=== PATIENT | male | born 1965 | race African-American/Black ===

== ENCOUNTER 2021-08-09 15:14 | Inpatient (IN) | payer OTHER ==
[2021-08-09] MEDS ORDERED: ACETAMINOPHEN 1000 MG/100 ML BAG IVPB ONE (17:16)
[2021-08-09] MEDS ORDERED: LACTATED RINGERS SOLUTION 1000 ML INFUS.BAG IV ONE (17:16)
[2021-08-09] MEDS ORDERED: VANCOMYCIN 1,000 MG in DEXTROSE 5%-WATER - 250 ML IVPB ONE (17:50)
[2021-08-09] MEDS ORDERED: PIPERACILLIN/TAZOB 4.5 GM 4.5 GM in DEXTROSE 5%-WATER 100 ML IVPB ONE (17:50)
[2021-08-09] MEDS ORDERED: ACETAMINOPHEN INJECTION 100 ML IVPB ONE (17:55)
[2021-08-09] MEDS ORDERED: VANCOMYCIN 1 GRAM (PRE-DOCKED) 1,000 MG/250 ML BAG IVPB ONE (17:56)
[2021-08-09 18:03] LABS: BASO % 0.4 % (0-2.0); EOS % 1.8 % (0-4.5); HEMATOCRIT 32.7 % (35.4-49); HEMOGLOBIN 11.3 GM/dL (11.7-16.9); LYMPH % 7.9 % (8-40); MCH 30.7 pg (25.7-33.7); MCHC 34.6 g/dl (32.0-35.9); MEAN CELL VOLUME 88.8 fl (80-96); MEAN PLT VOLUME 7.6 fl (7.5-11.1); MONO % 9.8 % (3.8-10.2); NEUT % 80.1 % (42.8-82.8); PLATELET COUNT 229 10^3/uL (134-434); RBC 3.68 M/mm3 (4.00-5.60); RDW 13.8 % (11.9-15.9)
[2021-08-09 18:23] LABS: CHLORIDE 94 mmol/L (98-107); SODIUM 134 mmol/L (136-145)
[2021-08-09 18:24] LABS: INR 1.22 (0.83-1.09); PROTHROMBIN TIME (PATIENT) 14.3 SEC (9.7-13.0)
[2021-08-09 18:26] LABS: ALBUMIN 2.7 g/dl (3.4-5.0); ANION GAP 11 MMOL/L (8-16); BLOOD UREA NITROGEN 25.2 mg/dL (7-18); CALCIUM 8.6 mg/dL (8.5-10.1); CO2 29 mmol/L (21-32); GLUCOSE,RANDOM 170 mg/dL (74-106)
[2021-08-09 18:27] LABS: ACTIVATED PTT 29.3 SECONDS (25.2-36.5)
[2021-08-09 18:29] LABS: CREATININE 2.3 mg/dL (0.55-1.3); SGOT/AST 39 U/L (15-37); SGPT/ALT 23 U/L (13-61)
[2021-08-09 18:31] LABS: BILIRUBIN,TOTAL 1.3 mg/dL (0.2-1); TOT PROT 7.7 g/dl (6.4-8.2)
[2021-08-09 18:33] LABS: ALK PHOS 627 U/L (45-117)
[2021-08-09 23:34] LABS: MAGNESIUM 1.5 mg/dL (1.8-2.4)
[2021-08-10] MEDS ORDERED: POTASSIUM CHLORIDE TABS 20 MEQ TABLET.ER (FP) PO ONE ×3 (00:49→12:50)
[2021-08-10] MEDS ORDERED: guaiFENesin 200 MG/10 ML 10 ML UNIT-DOSE CUPS PO ONE (00:52)
[2021-08-10] MEDS ORDERED: ACETAMINOPHEN 325 MG TABLET (FP) PO ONE (00:52)
[2021-08-10] MEDS ORDERED: ACETAMINOPHEN 325 MG TABLET (FP) ONE (01:20)
[2021-08-10] MEDS ORDERED: guaiFENesin/D-METHORPHAN HB 10 ML UNIT-DOSE CUPS ONE (01:20)
[2021-08-10] MEDS ORDERED: MAGNESIUM 1GM/D5W - 1 GM/100 ML IVPB IVPB ONE (01:21)
[2021-08-10] MEDS ORDERED: ACETAMINOPHEN 1000 MG/100 ML BAG IVPB PRN (01:41)
[2021-08-10 01:46] LABS: EPI CELLS 5 /uL (0-25.1); HYALINE CASTS 1 /uL (0-3.1); PH,URINE 5.5 (5.0-8.0); URINE APPEARANCE CLEAR; URINE BACTERIA 3 /uL (0-1359); URINE BILIRUBIN NEGATIVE (NEGATIVE); URINE COLOR DK YELLOW; URINE GLUCOSE (UA) NEGATIVE (NEGATIVE); URINE KETONE NEGATIVE (NEGATIVE); URINE LEUK ESTERASE TRACE (NEGATIVE); URINE NITRITE NEGATIVE (NEGATIVE); URINE PROTEIN 3+ (NEGATIVE); URINE RBC 19 /uL (0-23.9); URINE WBC 23 /uL (0-25.8)
[2021-08-10 02:26] LABS: RETICULOCYTES 0.95 % (0.5-1.5)
[2021-08-10] MEDS ORDERED: ALBUTEROL SO4 HFA INHALER IH PRN (02:26)
[2021-08-10] MEDS: SODIUM CHLORIDE 1,000 ML IV SCH ×2 (03:16→23:08)
[2021-08-10] MEDS: PIPERACILLIN/TAZOB 3.375 GM 3.375 GM in DEXTROSE 5%-WATER - 50 ML IVPB SCH ×3 (03:55→17:30)
[2021-08-10] MEDS ORDERED: PIPERACILLIN/TAZOB 3.375 GM 3.375 GM/50 ML BAG IVPB ONE (03:57)
[2021-08-10] MEDS: LINEZOLID 600 MG PREMIX BAG 600 MG/300 ML BAG IVPB SCH ×2 (06:00→16:29)
[2021-08-10] MEDS: HEPARIN NA (PORCINE) 5,000 UNITS/ML 1ML VIAL SQ SCH ×3 (06:02→21:03)
[2021-08-10] MEDS: INSULIN SLIDING SCALE (NOVOLOG) 1 VIAL SQ SCH ×4 (06:07→21:03)
[2021-08-10 06:38] VITALS: BMI 28.0
[2021-08-10 08:51] LABS: EPI CELLS 2 /uL (0-25.1); HYALINE CASTS 0 /uL (0-3.1); PH,URINE 6.5 (5.0-8.0); URINE APPEARANCE CLEAR; URINE BACTERIA 1 /uL (0-1359); URINE BILIRUBIN NEGATIVE (NEGATIVE); URINE COLOR YELLOW; URINE GLUCOSE (UA) NEGATIVE (NEGATIVE); URINE KETONE NEGATIVE (NEGATIVE); URINE LEUK ESTERASE TRACE (NEGATIVE); URINE NITRITE NEGATIVE (NEGATIVE); URINE PROTEIN 2+ (NEGATIVE); URINE RBC 7 /uL (0-23.9); URINE WBC 9 /uL (0-25.8)
[2021-08-10] MEDS ORDERED: PT OWN MED DRAWER 7, Y5N ONE ×3 (09:10→20:07)
[2021-08-10] MEDS ORDERED: DEXTROSE 5%-WATER - 50 ML IVPB ONE ×2 (09:10→16:55)
[2021-08-10] MEDS ORDERED: PIPERACILLIN/TAZOBACTAM 3.375 GM VIAL IVPB ONE ×2 (09:10→16:54)
[2021-08-10] MEDS: BUDESONIDE/FORMETEROL FUMARATE 80/4.5 mcg INHALER IH SCH ×2 (09:28→21:19)
[2021-08-10] MEDS: guaiFENesin/D-M SUGAR-FREE/ACLHOL-FREE 118 ML BOTTLE PO PRN ×2 (09:29→20:22)
[2021-08-10] MEDS ORDERED: FLU VACC QS2021-22(6MOS UP)/PF 60 MCG/0.5 ML SYRINGE IM ONE (10:00)
[2021-08-10 11:55] LABS: BASO % 0.5 % (0-2.0); EOS % 3.8 % (0-4.5); HEMATOCRIT 28.5 % (35.4-49); LYMPH % 7.8 % (8-40); MCH 31.2 pg (25.7-33.7); MCHC 35.1 g/dl (32.0-35.9); MEAN CELL VOLUME 89.1 fl (80-96); MEAN PLT VOLUME 8.2 fl (7.5-11.1); MONO % 12.3 % (3.8-10.2); NEUT % 75.6 % (42.8-82.8); PLATELET COUNT 162 10^3/uL (134-434); RDW 13.9 % (11.9-15.9); WHITE BLOOD COUNT 4.1 K/mm3 (4.0-10.0)
[2021-08-10] MEDS ORDERED: INSULIN (NOVOLOG) ASPART 100 UNITS/ML 10ML VIAL ONE (12:09)
[2021-08-10 12:17] LABS: CALCIUM 8.2 mg/dL (8.5-10.1)
[2021-08-10 12:18] LABS: ALBUMIN 2.5 g/dl (3.4-5.0); BLOOD UREA NITROGEN 25.3 mg/dL (7-18); MAGNESIUM 1.8 mg/dL (1.8-2.4)
[2021-08-10 12:21] LABS: CHOLESTEROL 129 mg/dL (50-200)
[2021-08-10 12:22] LABS: BILIRUBIN,TOTAL 1.5 mg/dL (0.2-1); TOT PROT 6.6 g/dl (6.4-8.2); TRIGLYCERIDES 110 mg/dL (0-150)
[2021-08-10 12:23] LABS: LDL CHOLESTEROL (ONLY SJRH) 75 mg/dL (5-100)
[2021-08-10 12:24] LABS: HDL CHOLESTEROL 33 mg/dL (40-60)
[2021-08-10] MEDS ORDERED: traMADol HCL 50 MG TABLET PO PRN (12:50)
[2021-08-10] MEDS ORDERED: guaiFENesin 200 MG/10 ML 10 ML UNIT-DOSE CUPS PO PRN (12:50)
[2021-08-10] MEDS ORDERED: TACROLIMUS ANHYDROUS 1 MG CAPSULE PO SCH (13:30)
[2021-08-10] MEDS ORDERED: TACROLIMUS 0.5 MG CAPSULE PO SCH (13:30)
[2021-08-10] MEDS: predniSONE 5 MG TABLET (UD) PO SCH (14:43)
[2021-08-10] MEDS: oxyCODONE HCL 5 MG TABLET PO PRN (16:56)
[2021-08-10] MEDS: MYCOPHENOLATE MOFETIL 250 MG CAPSULE PO SCH (21:02)
[2021-08-10] MEDS: TACROLIMUS ANHYDROUS 1 MG, TACROLIMUS ANHYDROUS 0.5 MG PO SCH (21:02)
[2021-08-11] MEDS ORDERED: DEXTROSE 5%-WATER - 50 ML IVPB ONE ×3 (01:13→18:33)
[2021-08-11] MEDS ORDERED: PIPERACILLIN/TAZOBACTAM 3.375 GM VIAL IVPB ONE ×3 (01:13→18:33)
[2021-08-11] MEDS: PIPERACILLIN/TAZOB 3.375 GM 3.375 GM in DEXTROSE 5%-WATER - 50 ML IVPB SCH ×3 (01:32→19:10)
[2021-08-11] MEDS ORDERED: MELATONIN 5 MG TABLETS PO ONE ×2 (01:57→21:37)
[2021-08-11] MEDS: LINEZOLID 600 MG PREMIX BAG 600 MG/300 ML BAG IVPB SCH ×2 (03:01→17:38)
[2021-08-11] MEDS: SODIUM CHLORIDE 1,000 ML IV SCH (03:01)
[2021-08-11] MEDS: oxyCODONE HCL 5 MG TABLET PO PRN ×3 (03:18→17:39)
[2021-08-11] MEDS: HEPARIN NA (PORCINE) 5,000 UNITS/ML 1ML VIAL SQ SCH ×3 (06:44→21:27)
[2021-08-11] MEDS: INSULIN SLIDING SCALE (NOVOLOG) 1 VIAL SQ SCH ×4 (06:47→21:49)
[2021-08-11] MEDS ORDERED: PT OWN MED DRAWER 7, Y5N ONE ×3 (09:47→17:53)
[2021-08-11] MEDS: MYCOPHENOLATE MOFETIL 250 MG CAPSULE PO SCH (10:02)
[2021-08-11] MEDS: TACROLIMUS ANHYDROUS 1 MG, TACROLIMUS ANHYDROUS 0.5 MG PO SCH ×2 (10:02→21:27)
[2021-08-11] MEDS: FAMOTIDINE 20 MG TABLET PO SCH (10:02)
[2021-08-11] MEDS: predniSONE 5 MG TABLET (UD) PO SCH (10:02)
[2021-08-11 10:08] LABS: BASO % 0.6 % (0-2.0); EOS % 2.6 % (0-4.5); HEMATOCRIT 26.7 % (35.4-49); HEMOGLOBIN 9.5 GM/dL (11.7-16.9); MCH 31.5 pg (25.7-33.7); MCHC 35.4 g/dl (32.0-35.9); MONO % 14.4 % (3.8-10.2); NEUT % 72.4 % (42.8-82.8); PLATELET COUNT 153 10^3/uL (134-434); RDW 13.8 % (11.9-15.9); WHITE BLOOD COUNT 2.7 K/mm3 (4.0-10.0)
[2021-08-11] MEDS: BUDESONIDE/FORMETEROL FUMARATE 80/4.5 mcg INHALER IH SCH ×2 (10:15→21:50)
[2021-08-11 10:20] LABS: ALBUMIN 2.1 g/dl (3.4-5.0); BLOOD UREA NITROGEN 21.6 mg/dL (7-18)
[2021-08-11 10:23] LABS: CREATININE 1.9 mg/dL (0.55-1.3)
[2021-08-11 10:25] LABS: BILIRUBIN,TOTAL 1.3 mg/dL (0.2-1); TOT PROT 6.4 g/dl (6.4-8.2)
[2021-08-11] MEDS ORDERED: POTASSIUM CHLORIDE TABS 20 MEQ TABLET.ER (FP) PO ONE (11:47)
[2021-08-11] MEDS ORDERED: guaiFENesin/D-M SUGAR-FREE/ACLHOL-FREE 5 ML UNIT DOSE PO PRN (12:26)
[2021-08-11] MEDS ORDERED: SOTROVIMAB 500 MG in SODIUM CHLORIDE 100 ML IVPB ONE (14:00)
[2021-08-11] MEDS ORDERED: REMDESIVIR 200 MG in SODIUM CHLORIDE 250 ML IVPB ONE (15:00)
[2021-08-11] MEDS ORDERED: INSULIN (NOVOLOG) ASPART 100 UNITS/ML 10ML VIAL ONE (16:49)
[2021-08-11 19:52] LABS: BILIRUBIN,DIRECT 0.7 mg/dL (0.0-0.2)
[2021-08-12] MEDS ORDERED: DEXTROSE 5%-WATER - 50 ML IVPB ONE ×3 (02:12→17:53)
[2021-08-12] MEDS ORDERED: PIPERACILLIN/TAZOBACTAM 3.375 GM VIAL IVPB ONE ×3 (02:12→17:52)
[2021-08-12] MEDS: PIPERACILLIN/TAZOB 3.375 GM 3.375 GM in DEXTROSE 5%-WATER - 50 ML IVPB SCH ×3 (02:25→19:05)
[2021-08-12] MEDS: oxyCODONE HCL 5 MG TABLET PO PRN ×2 (02:26→17:56)
[2021-08-12] MEDS: LINEZOLID 600 MG PREMIX BAG 600 MG/300 ML BAG IVPB SCH ×2 (05:19→16:26)
[2021-08-12] MEDS: HEPARIN NA (PORCINE) 5,000 UNITS/ML 1ML VIAL SQ SCH ×3 (05:53→21:46)
[2021-08-12] MEDS: INSULIN SLIDING SCALE (NOVOLOG) 1 VIAL SQ SCH ×4 (05:59→21:56)
[2021-08-12] MEDS: FAMOTIDINE 20 MG TABLET PO SCH (10:14)
[2021-08-12] MEDS: BUDESONIDE/FORMETEROL FUMARATE 80/4.5 mcg INHALER IH SCH ×2 (10:15→21:55)
[2021-08-12] MEDS: TACROLIMUS ANHYDROUS 1 MG, TACROLIMUS ANHYDROUS 0.5 MG PO SCH ×2 (12:06→23:58)
[2021-08-12] MEDS: predniSONE 5 MG TABLET (UD) PO SCH (12:06)
[2021-08-12] MEDS: SODIUM CHLORIDE 1,000 ML IV SCH (12:10)
[2021-08-12 13:13] LABS: BASO % 0.5 % (0-2.0); EOS % 3.3 % (0-4.5); HEMOGLOBIN 9.6 GM/dL (11.7-16.9); LYMPH % 12.7 % (8-40); MCH 31.7 pg (25.7-33.7); MCHC 35.4 g/dl (32.0-35.9); MEAN CELL VOLUME 89.6 fl (80-96); MEAN PLT VOLUME 8.4 fl (7.5-11.1); MONO % 14.8 % (3.8-10.2); NEUT % 68.7 % (42.8-82.8); PLATELET COUNT 176 10^3/uL (134-434); RBC 3.02 M/mm3 (4.00-5.60); RDW 14.1 % (11.9-15.9); WHITE BLOOD COUNT 2.7 K/mm3 (4.0-10.0)
[2021-08-12 13:36] LABS: BLOOD UREA NITROGEN 19.2 mg/dL (7-18); MAGNESIUM 1.3 mg/dL (1.8-2.4)
[2021-08-12 13:39] LABS: CREATININE 1.8 mg/dL (0.55-1.3); PHOSPHOROUS 2.6 mg/dL (2.5-4.9)
[2021-08-12] MEDS ORDERED: MAGNESIUM SULF 50% (8.12 MEQ/2 ML-1 GM VIAL) IVPB ONE (14:13)
[2021-08-12] MEDS ORDERED: PT OWN MED DRAWER 7, Y5N ONE ×2 (21:12→21:40)
[2021-08-12] MEDS: REMDESIVIR 100 MG in SODIUM CHLORIDE 250 ML IVPB SCH (21:46)
[2021-08-12] MEDS: MELATONIN 5 MG TABLETS PO PRN (23:58)
[2021-08-13] MEDS: SODIUM CHLORIDE 1,000 ML IV SCH ×2 (00:01→09:28)
[2021-08-13] MEDS ORDERED: DEXTROSE 5%-WATER - 50 ML IVPB ONE ×3 (01:20→17:14)
[2021-08-13] MEDS ORDERED: PIPERACILLIN/TAZOBACTAM 3.375 GM VIAL IVPB ONE ×3 (01:20→17:14)
[2021-08-13] MEDS: PIPERACILLIN/TAZOB 3.375 GM 3.375 GM in DEXTROSE 5%-WATER - 50 ML IVPB SCH ×3 (01:32→19:09)
[2021-08-13] MEDS ORDERED: PT OWN MED DRAWER 7, Y5N ONE ×4 (03:47→22:10)
[2021-08-13] MEDS: LINEZOLID 600 MG PREMIX BAG 600 MG/300 ML BAG IVPB SCH ×2 (03:53→17:27)
[2021-08-13] MEDS: oxyCODONE HCL 5 MG TABLET PO PRN (06:00)
[2021-08-13] MEDS: HEPARIN NA (PORCINE) 5,000 UNITS/ML 1ML VIAL SQ SCH ×3 (06:12→22:23)
[2021-08-13] MEDS: INSULIN SLIDING SCALE (NOVOLOG) 1 VIAL SQ SCH ×4 (06:13→22:24)
[2021-08-13] MEDS ORDERED: ONDANSETRON 4 MG/2 ML VIAL IVPUSH PRN (09:02)
[2021-08-13] MEDS: ACETAMINOPHEN 325 MG TABLET (FP) PO PRN ×3 (09:29→22:22)
[2021-08-13] MEDS: TACROLIMUS ANHYDROUS 1 MG, TACROLIMUS ANHYDROUS 0.5 MG PO SCH ×2 (10:27→22:25)
[2021-08-13] MEDS: MAGNESIUM OXIDE 400 MG TABLET (FP) PO SCH (10:29)
[2021-08-13] MEDS: FAMOTIDINE 20 MG TABLET PO SCH (10:29)
[2021-08-13] MEDS: predniSONE 5 MG TABLET (UD) PO SCH (10:29)
[2021-08-13] MEDS: BUDESONIDE/FORMETEROL FUMARATE 80/4.5 mcg INHALER IH SCH ×2 (10:30→22:25)
[2021-08-13 13:04] LABS: HEMATOCRIT 26.7 % (35.4-49); HEMOGLOBIN 9.6 GM/dL (11.7-16.9); MCHC 35.9 g/dl (32.0-35.9); MEAN CELL VOLUME 89.1 fl (80-96); MEAN PLT VOLUME 7.6 fl (7.5-11.1); PLATELET COUNT 176 10^3/uL (134-434); RDW 13.7 % (11.9-15.9); WHITE BLOOD COUNT 3.4 K/mm3 (4.0-10.0)
[2021-08-13 13:37] LABS: BLOOD UREA NITROGEN 16.4 mg/dL (7-18)
[2021-08-13 13:39] LABS: MAGNESIUM 1.5 mg/dL (1.8-2.4)
[2021-08-13 13:41] LABS: CREATININE 1.5 mg/dL (0.55-1.3)
[2021-08-13] MEDS: REMDESIVIR 100 MG in SODIUM CHLORIDE 250 ML IVPB SCH (14:22)
[2021-08-13] MEDS ORDERED: oxyCODONE HCL 5 MG TABLET PO ONE (19:00)
[2021-08-13] MEDS: MELATONIN 5 MG TABLETS PO PRN (22:22)
[2021-08-13] MEDS ORDERED: amLODIPine BESYLATE 2.5 MG TABLET (FP) PO ONE (23:06)
[2021-08-14] MEDS ORDERED: DEXTROSE 5%-WATER - 50 ML IVPB ONE ×3 (01:26→18:14)
[2021-08-14] MEDS ORDERED: PIPERACILLIN/TAZOBACTAM 3.375 GM VIAL IVPB ONE ×4 (01:26→18:14)
[2021-08-14] MEDS: PIPERACILLIN/TAZOB 3.375 GM 3.375 GM in DEXTROSE 5%-WATER - 50 ML IVPB SCH ×3 (01:31→18:22)
[2021-08-14] MEDS: SODIUM CHLORIDE 1,000 ML IV SCH (01:41)
[2021-08-14] MEDS ORDERED: PT OWN MED DRAWER 7, Y5N ONE ×4 (05:05→21:00)
[2021-08-14] MEDS: LINEZOLID 600 MG PREMIX BAG 600 MG/300 ML BAG IVPB SCH ×2 (05:07→19:56)
[2021-08-14] MEDS: HEPARIN NA (PORCINE) 5,000 UNITS/ML 1ML VIAL SQ SCH ×3 (05:08→21:32)
[2021-08-14] MEDS ORDERED: amLODIPine BESYLATE 2.5 MG TABLET (FP) PO ONE (05:30)
[2021-08-14] MEDS: INSULIN SLIDING SCALE (NOVOLOG) 1 VIAL SQ SCH ×4 (06:03→21:33)
[2021-08-14] MEDS: MAGNESIUM OXIDE 400 MG TABLET (FP) PO SCH (10:30)
[2021-08-14] MEDS: FAMOTIDINE 20 MG TABLET PO SCH (10:30)
[2021-08-14] MEDS: TACROLIMUS ANHYDROUS 1 MG, TACROLIMUS ANHYDROUS 0.5 MG PO SCH ×2 (10:35→21:32)
[2021-08-14] MEDS: predniSONE 5 MG TABLET (UD) PO SCH (10:36)
[2021-08-14] MEDS: BUDESONIDE/FORMETEROL FUMARATE 80/4.5 mcg INHALER IH SCH ×3 (10:36→21:39)
[2021-08-14 10:52] LABS: HEMATOCRIT 29.1 % (35.4-49); HEMOGLOBIN 10.4 GM/dL (11.7-16.9); MCH 31.9 pg (25.7-33.7); MCHC 35.6 g/dl (32.0-35.9); MEAN CELL VOLUME 89.8 fl (80-96); MEAN PLT VOLUME 7.6 fl (7.5-11.1); PLATELET COUNT 194 10^3/uL (134-434); RBC 3.24 M/mm3 (4.00-5.60); RDW 13.7 % (11.9-15.9); WHITE BLOOD COUNT 2.7 K/mm3 (4.0-10.0)
[2021-08-14 11:18] LABS: ALBUMIN 2.3 g/dl (3.4-5.0); BLOOD UREA NITROGEN 17.8 mg/dL (7-18); CALCIUM 8.3 mg/dL (8.5-10.1)
[2021-08-14 11:21] LABS: BILIRUBIN,TOTAL 0.7 mg/dL (0.2-1); TOT PROT 6.3 g/dl (6.4-8.2)
[2021-08-14 11:22] LABS: CREATININE 1.7 mg/dL (0.55-1.3)
[2021-08-14] MEDS ORDERED: SODIUM CHLORIDE 0.45% 1,000 ML IV SCH (13:15)
[2021-08-14] MEDS ORDERED: CEFTRIAXONE 2 GM in DEXTROSE 5%-WATER 100 ML IVPB SCH (14:15)
[2021-08-14] MEDS ORDERED: PANTOPRAZOLE 20 MG TABLET PO PRN (14:33)
[2021-08-14] MEDS ORDERED: DEXTROSE 5%-WATER 100 ML IVPB ONE (15:25)
[2021-08-14] MEDS: ACETAMINOPHEN 325 MG TABLET (FP) PO PRN (20:24)
[2021-08-14] MEDS: GABAPENTIN 400 MG CAPSULE PO SCH (21:32)
[2021-08-15] MEDS ORDERED: DEXTROSE 5%-WATER - 50 ML IVPB ONE ×3 (00:46→17:21)
[2021-08-15] MEDS ORDERED: PIPERACILLIN/TAZOBACTAM 3.375 GM VIAL IVPB ONE ×3 (00:46→17:21)
[2021-08-15] MEDS: PIPERACILLIN/TAZOB 3.375 GM 3.375 GM in DEXTROSE 5%-WATER - 50 ML IVPB SCH ×3 (01:09→17:22)
[2021-08-15] MEDS: SODIUM CHLORIDE 1,000 ML IV SCH (01:09)
[2021-08-15] MEDS ORDERED: PT OWN MED DRAWER 7, Y5N ONE ×3 (06:23→10:18)
[2021-08-15] MEDS: HEPARIN NA (PORCINE) 5,000 UNITS/ML 1ML VIAL SQ SCH ×3 (06:45→21:26)
[2021-08-15] MEDS: INSULIN SLIDING SCALE (NOVOLOG) 1 VIAL SQ SCH ×3 (06:47→17:44)
[2021-08-15] MEDS: LINEZOLID 600 MG PREMIX BAG 600 MG/300 ML BAG IVPB SCH ×2 (06:47→17:20)
[2021-08-15 09:27] LABS: ALBUMIN 2.4 g/dl (3.4-5.0); CALCIUM 8.4 mg/dL (8.5-10.1)
[2021-08-15 09:30] LABS: CREATININE 1.8 mg/dL (0.55-1.3)
[2021-08-15 09:32] LABS: TOT PROT 6.5 g/dl (6.4-8.2)
[2021-08-15] MEDS: MAGNESIUM OXIDE 400 MG TABLET (FP) PO SCH (09:55)
[2021-08-15] MEDS: TACROLIMUS ANHYDROUS 1 MG, TACROLIMUS ANHYDROUS 0.5 MG PO SCH ×2 (09:55→21:26)
[2021-08-15] MEDS: GABAPENTIN 400 MG CAPSULE PO SCH ×2 (09:55→21:26)
[2021-08-15] MEDS: FAMOTIDINE 20 MG TABLET PO SCH (09:55)
[2021-08-15] MEDS: TAMSULOSIN HCL 0.4 MG CAP PO SCH (09:55)
[2021-08-15] MEDS: predniSONE 5 MG TABLET (UD) PO SCH (09:55)
[2021-08-15] MEDS: amLODIPine BESYLATE 10 MG TABLET (FP) PO SCH (09:56)
[2021-08-15] MEDS: BUDESONIDE/FORMETEROL FUMARATE 80/4.5 mcg INHALER IH SCH ×2 (10:16→21:26)
[2021-08-15] MEDS: ACETAMINOPHEN 325 MG TABLET (FP) PO PRN ×2 (10:22→21:34)
[2021-08-15] MEDS: ATORVASTATIN CA 40 MG TABLET (FP) PO SCH (21:26)
[2021-08-16] MEDS: INSULIN SLIDING SCALE (NOVOLOG) 1 VIAL SQ SCH ×5 (00:23→21:23)
[2021-08-16] MEDS: SODIUM CHLORIDE 1,000 ML IV SCH ×3 (06:57→21:02)
[2021-08-16] MEDS: HEPARIN NA (PORCINE) 5,000 UNITS/ML 1ML VIAL SQ SCH ×3 (06:58→21:22)
[2021-08-16] MEDS ORDERED: PT OWN MED DRAWER 7, Y5N ONE ×3 (08:33→21:18)
[2021-08-16] MEDS: amLODIPine BESYLATE 10 MG TABLET (FP) PO SCH (09:11)
[2021-08-16] MEDS: MAGNESIUM OXIDE 400 MG TABLET (FP) PO SCH (09:11)
[2021-08-16] MEDS: GABAPENTIN 400 MG CAPSULE PO SCH ×2 (09:11→21:23)
[2021-08-16] MEDS: FAMOTIDINE 20 MG TABLET PO SCH (09:11)
[2021-08-16] MEDS: TAMSULOSIN HCL 0.4 MG CAP PO SCH (09:11)
[2021-08-16] MEDS: predniSONE 5 MG TABLET (UD) PO SCH (09:12)
[2021-08-16] MEDS: TACROLIMUS ANHYDROUS 1 MG, TACROLIMUS ANHYDROUS 0.5 MG PO SCH ×2 (09:13→21:22)
[2021-08-16] MEDS: BUDESONIDE/FORMETEROL FUMARATE 80/4.5 mcg INHALER IH SCH ×2 (09:13→21:24)
[2021-08-16 09:44] LABS: HEMATOCRIT 24.5 % (35.4-49); HEMOGLOBIN 8.6 GM/dL (11.7-16.9); MCH 31.7 pg (25.7-33.7); MCHC 35.1 g/dl (32.0-35.9); MEAN CELL VOLUME 90.1 fl (80-96); MEAN PLT VOLUME 7.4 fl (7.5-11.1); PLATELET COUNT 140 10^3/uL (134-434); RBC 2.71 M/mm3 (4.00-5.60); RDW 14.3 % (11.9-15.9)
[2021-08-16 10:19] LABS: BLOOD UREA NITROGEN 20.2 mg/dL (7-18)
[2021-08-16 10:20] LABS: CALCIUM 7.2 mg/dL (8.5-10.1)
[2021-08-16 10:21] LABS: ALBUMIN 2.3 g/dl (3.4-5.0); BILIRUBIN,TOTAL 0.4 mg/dL (0.2-1)
[2021-08-16 10:23] LABS: CREATININE 1.5 mg/dL (0.55-1.3)
[2021-08-16 10:59] LABS: HIV INTERPRETATION NEGATIVE (NEGATIVE); SYPHILIS W/ RPR CONF NON-REACTIVE (NONREACTIVE); WHITE BLOOD COUNT 1.8 K/mm3 (4.0-10.0)
[2021-08-16] MEDS: ATORVASTATIN CA 40 MG TABLET (FP) PO SCH (21:23)
[2021-08-17] MEDS: HEPARIN NA (PORCINE) 5,000 UNITS/ML 1ML VIAL SQ SCH ×3 (06:03→21:18)
[2021-08-17] MEDS: INSULIN SLIDING SCALE (NOVOLOG) 1 VIAL SQ SCH ×4 (06:04→21:19)
[2021-08-17] MEDS ORDERED: PT OWN MED DRAWER 7, Y5N ONE ×2 (09:09→21:05)
[2021-08-17] MEDS: SODIUM CHLORIDE 1,000 ML IV SCH (10:55)
[2021-08-17] MEDS: predniSONE 5 MG TABLET (UD) PO SCH (10:58)
[2021-08-17] MEDS: amLODIPine BESYLATE 10 MG TABLET (FP) PO SCH (10:58)
[2021-08-17] MEDS: TAMSULOSIN HCL 0.4 MG CAP PO SCH (10:58)
[2021-08-17] MEDS: MAGNESIUM OXIDE 400 MG TABLET (FP) PO SCH (10:58)
[2021-08-17] MEDS: FAMOTIDINE 20 MG TABLET PO SCH (10:59)
[2021-08-17] MEDS: GABAPENTIN 400 MG CAPSULE PO SCH ×2 (10:59→21:19)
[2021-08-17] MEDS: ACETAMINOPHEN 325 MG TABLET (FP) PO PRN (11:00)
[2021-08-17] MEDS: BUDESONIDE/FORMETEROL FUMARATE 80/4.5 mcg INHALER IH SCH ×2 (11:15→21:24)
[2021-08-17] MEDS: TACROLIMUS ANHYDROUS 1 MG, TACROLIMUS ANHYDROUS 0.5 MG PO SCH ×2 (11:16→21:19)
[2021-08-17 12:11] LABS: BASO % 0.4 % (0-2.0); EOS % 1.7 % (0-4.5); HEMATOCRIT 27.2 % (35.4-49); HEMOGLOBIN 9.3 GM/dL (11.7-16.9); LYMPH % 27.7 % (8-40); MCH 31.2 pg (25.7-33.7); MCHC 34.3 g/dl (32.0-35.9); MEAN PLT VOLUME 7.7 fl (7.5-11.1); MONO % 11.4 % (3.8-10.2); NEUT % 58.8 % (42.8-82.8); PLATELET COUNT 147 10^3/uL (134-434); RBC 2.99 M/mm3 (4.00-5.60); WHITE BLOOD COUNT 2.1 K/mm3 (4.0-10.0)
[2021-08-17 12:36] LABS: CALCIUM 7.9 mg/dL (8.5-10.1)
[2021-08-17 12:37] LABS: BLOOD UREA NITROGEN 25.6 mg/dL (7-18)
[2021-08-17 12:40] LABS: CREATININE 1.6 mg/dL (0.55-1.3)
[2021-08-17] MEDS: ATORVASTATIN CA 40 MG TABLET (FP) PO SCH (21:19)
[2021-08-17] MEDS: MELATONIN 5 MG TABLETS PO PRN (21:19)
[2021-08-18] MEDS: SODIUM CHLORIDE 1,000 ML IV SCH ×2 (01:04→23:08)
[2021-08-18] MEDS: HEPARIN NA (PORCINE) 5,000 UNITS/ML 1ML VIAL SQ SCH ×3 (06:36→21:59)
[2021-08-18] MEDS: INSULIN SLIDING SCALE (NOVOLOG) 1 VIAL SQ SCH ×4 (06:37→21:59)
[2021-08-18 09:36] LABS: BASO % 0.3 % (0-2.0); EOS % 1.7 % (0-4.5); HEMATOCRIT 26.6 % (35.4-49); HEMOGLOBIN 9.3 GM/dL (11.7-16.9); LYMPH % 25.2 % (8-40); MCH 31.4 pg (25.7-33.7); MEAN CELL VOLUME 89.7 fl (80-96); MEAN PLT VOLUME 7.5 fl (7.5-11.1); MONO % 9.9 % (3.8-10.2); NEUT % 62.9 % (42.8-82.8); PLATELET COUNT 133 10^3/uL (134-434); RBC 2.97 M/mm3 (4.00-5.60); RDW 14.2 % (11.9-15.9); WHITE BLOOD COUNT 2.2 K/mm3 (4.0-10.0)
[2021-08-18 09:59] LABS: BLOOD UREA NITROGEN 26.4 mg/dL (7-18); CALCIUM 8.5 mg/dL (8.5-10.1)
[2021-08-18 10:00] LABS: ALBUMIN 2.5 g/dl (3.4-5.0); MAGNESIUM 1.2 mg/dL (1.8-2.4)
[2021-08-18 10:02] LABS: PHOSPHOROUS 2.4 mg/dL (2.5-4.9)
[2021-08-18 10:03] LABS: CREATININE 1.6 mg/dL (0.55-1.3)
[2021-08-18 10:04] LABS: BILIRUBIN,TOTAL 0.6 mg/dL (0.2-1); TOT PROT 6.5 g/dl (6.4-8.2)
[2021-08-18] MEDS ORDERED: PT OWN MED DRAWER 7, Y5N ONE ×3 (10:33→22:38)
[2021-08-18] MEDS: GABAPENTIN 400 MG CAPSULE PO SCH ×2 (10:35→22:00)
[2021-08-18] MEDS: MAGNESIUM OXIDE 400 MG TABLET (FP) PO SCH (10:36)
[2021-08-18] MEDS: amLODIPine BESYLATE 10 MG TABLET (FP) PO SCH (10:36)
[2021-08-18] MEDS: FAMOTIDINE 20 MG TABLET PO SCH (10:36)
[2021-08-18] MEDS: BUDESONIDE/FORMETEROL FUMARATE 80/4.5 mcg INHALER IH SCH ×2 (10:36→22:01)
[2021-08-18] MEDS: TAMSULOSIN HCL 0.4 MG CAP PO SCH (10:36)
[2021-08-18] MEDS: predniSONE 5 MG TABLET (UD) PO SCH (10:37)
[2021-08-18] MEDS: TACROLIMUS ANHYDROUS 1 MG, TACROLIMUS ANHYDROUS 0.5 MG PO SCH ×2 (10:38→22:01)
[2021-08-18] MEDS ORDERED: MAGNESIUM 2GM/50ML STERILE WATER IVPB IVPB ONE (12:23)
[2021-08-18] MEDS ORDERED: SODIUM PHOSPHATE - 15 MM in SODIUM CHLORIDE 250 ML IVPB ONE (13:00)
[2021-08-18 17:11] LABS: INR 1.2 (0.83-1.09); PROTHROMBIN TIME (PATIENT) 13.8 SEC (9.7-13.0)
[2021-08-18] MEDS: ATORVASTATIN CA 40 MG TABLET (FP) PO SCH (22:00)
[2021-08-19] MEDS: SODIUM CHLORIDE 1,000 ML IV SCH ×3 (05:44→20:50)
[2021-08-19] MEDS: INSULIN SLIDING SCALE (NOVOLOG) 1 VIAL SQ SCH ×3 (06:29→21:25)
[2021-08-19] MEDS ORDERED: BUPIVACAINE HCL/PF 0.5% (5MG/ML) 10 ML VIAL ONE (07:58)
[2021-08-19] MEDS ORDERED: LIDOCAINE HCL 1%, 10 MG/ML (20ML VIAL) ONE (07:58)
[2021-08-19] MEDS ORDERED: PT OWN MED DRAWER 7, Y5N ONE ×2 (09:03→21:18)
[2021-08-19] MEDS: amLODIPine BESYLATE 10 MG TABLET (FP) PO SCH (09:09)
[2021-08-19] MEDS: GABAPENTIN 400 MG CAPSULE PO SCH ×2 (09:09→21:25)
[2021-08-19] MEDS: FAMOTIDINE 20 MG TABLET PO SCH (09:09)
[2021-08-19] MEDS: MAGNESIUM OXIDE 400 MG TABLET (FP) PO SCH (09:09)
[2021-08-19] MEDS: BUDESONIDE/FORMETEROL FUMARATE 80/4.5 mcg INHALER IH SCH ×2 (09:09→21:26)
[2021-08-19] MEDS: TAMSULOSIN HCL 0.4 MG CAP PO SCH (09:09)
[2021-08-19] MEDS: TACROLIMUS ANHYDROUS 1 MG, TACROLIMUS ANHYDROUS 0.5 MG PO SCH ×2 (09:11→21:26)
[2021-08-19] MEDS: predniSONE 5 MG TABLET (UD) PO SCH (09:11)
[2021-08-19] MEDS ORDERED: MIDAZOLAM HCL 2 MG/2 ML SINGLE DOSE VIAL ONE ×2 (09:50)
[2021-08-19] MEDS ORDERED: PROPOFOL 20 ML ONE ×2 (09:50→11:02)
[2021-08-19 10:43] LABS: BASO % 0.4 % (0-2.0); EOS % 1.8 % (0-4.5); HEMATOCRIT 32.5 % (35.4-49); HEMOGLOBIN 11.5 GM/dL (11.7-16.9); LYMPH % 22.5 % (8-40); MCH 31.7 pg (25.7-33.7); MCHC 35.4 g/dl (32.0-35.9); MEAN CELL VOLUME 89.5 fl (80-96); MEAN PLT VOLUME 7.6 fl (7.5-11.1); MONO % 10.7 % (3.8-10.2); NEUT % 64.6 % (42.8-82.8); PLATELET COUNT 150 10^3/uL (134-434); RBC 3.63 M/mm3 (4.00-5.60); RDW 14.1 % (11.9-15.9); WHITE BLOOD COUNT 4.1 K/mm3 (4.0-10.0)
[2021-08-19] MEDS ORDERED: LIDOCAINE HCL 1%, 10 MG/ML (20ML VIAL) INF ONE ×3 (10:51)
[2021-08-19] MEDS ORDERED: VANCOMYCIN 1,000 MG VIAL (RESTRICTED TO ID ONLY) ONE (10:51)
[2021-08-19 11:04] LABS: BLOOD UREA NITROGEN 28.7 mg/dL (7-18)
[2021-08-19 11:07] LABS: BILIRUBIN,TOTAL 0.8 mg/dL (0.2-1); CREATININE 1.6 mg/dL (0.55-1.3)
[2021-08-19 11:09] LABS: TOT PROT 7.9 g/dl (6.4-8.2)
[2021-08-19 11:12] LABS: ALBUMIN 3.1 g/dl (3.4-5.0)
[2021-08-19] MEDS ORDERED: SEVOFLURANE 250 ML BTL ONE (11:15)
[2021-08-19] MEDS ORDERED: DESFLURANE GAS 240 ML BOTTLE IH ONE (11:15)
[2021-08-19] MEDS ORDERED: VANCOMYCIN 1,000 MG VIAL (RESTRICTED TO ID ONLY) IVPB ONE (11:28)
[2021-08-19] MEDS ORDERED: ALBUTEROL SO4 HFA INHALER IH PRN (12:52)
[2021-08-19] MEDS ORDERED: ONDANSETRON 4 MG/2 ML VIAL IVPUSH PRN (12:52)
[2021-08-19] MEDS ORDERED: guaiFENesin/D-M SUGAR-FREE/ACLHOL-FREE 5 ML UNIT DOSE PO PRN (12:52)
[2021-08-19] MEDS ORDERED: PANTOPRAZOLE 20 MG TABLET PO PRN (12:52)
[2021-08-19] MEDS ORDERED: ACETAMINOPHEN 325 MG TABLET (FP) PO PRN (12:52)
[2021-08-19] MEDS ORDERED: LACTATED RINGERS SOLUTION 1,000 ML IV SCH (13:00)
[2021-08-19] MEDS: ATORVASTATIN CA 40 MG TABLET (FP) PO SCH (21:25)
[2021-08-20] MEDS: HEPARIN NA (PORCINE) 5,000 UNITS/ML 1ML VIAL SQ SCH ×3 (06:19→21:43)
[2021-08-20] MEDS: INSULIN SLIDING SCALE (NOVOLOG) 1 VIAL SQ SCH ×5 (06:20→21:44)
[2021-08-20] MEDS: TAMSULOSIN HCL 0.4 MG CAP PO SCH (09:47)
[2021-08-20] MEDS: amLODIPine BESYLATE 10 MG TABLET (FP) PO SCH (09:48)
[2021-08-20] MEDS: FAMOTIDINE 20 MG TABLET PO SCH (09:48)
[2021-08-20] MEDS: MAGNESIUM OXIDE 400 MG TABLET (FP) PO SCH (09:48)
[2021-08-20] MEDS: predniSONE 5 MG TABLET (UD) PO SCH (09:49)
[2021-08-20] MEDS: GABAPENTIN 400 MG CAPSULE PO SCH ×2 (09:49→21:43)
[2021-08-20] MEDS: TACROLIMUS ANHYDROUS 1 MG, TACROLIMUS ANHYDROUS 0.5 MG PO SCH ×2 (09:49→21:44)
[2021-08-20] MEDS: BUDESONIDE/FORMETEROL FUMARATE 80/4.5 mcg INHALER IH SCH ×2 (09:50→21:45)
[2021-08-20] MEDS: oxyCODONE HCL 5 MG TABLET PO PRN (09:55)
[2021-08-20 10:32] LABS: BASO % 0.4 % (0-2.0); EOS % 1.3 % (0-4.5); HEMATOCRIT 26.2 % (35.4-49); LYMPH % 19.7 % (8-40); MCHC 34.2 g/dl (32.0-35.9); MEAN CELL VOLUME 90.5 fl (80-96); MEAN PLT VOLUME 8.4 fl (7.5-11.1); MONO % 10.6 % (3.8-10.2); PLATELET COUNT 97 10^3/uL (134-434); RDW 14.3 % (11.9-15.9); WHITE BLOOD COUNT 3.2 K/mm3 (4.0-10.0)
[2021-08-20 10:56] LABS: ALBUMIN 2.7 g/dl (3.4-5.0); BLOOD UREA NITROGEN 34.6 mg/dL (7-18)
[2021-08-20 10:58] LABS: CREATININE 1.9 mg/dL (0.55-1.3)
[2021-08-20 10:59] LABS: BILIRUBIN,TOTAL 0.6 mg/dL (0.2-1); TOT PROT 6.6 g/dl (6.4-8.2)
[2021-08-20] MEDS ORDERED: DEXTROSE 5%-WATER 100 ML IVPB ONE (15:45)
[2021-08-20] MEDS: SODIUM CHLORIDE 1,000 ML IV SCH (15:51)
[2021-08-20] MEDS: CEFTRIAXONE 2 GM in DEXTROSE 5%-WATER 100 ML IVPB SCH (15:52)
[2021-08-20] MEDS: MELATONIN 5 MG TABLETS PO PRN (21:43)
[2021-08-20] MEDS: ATORVASTATIN CA 40 MG TABLET (FP) PO SCH (21:44)
[2021-08-21] MEDS: INSULIN SLIDING SCALE (NOVOLOG) 1 VIAL SQ SCH ×4 (06:28→22:39)
[2021-08-21] MEDS: HEPARIN NA (PORCINE) 5,000 UNITS/ML 1ML VIAL SQ SCH ×3 (06:28→22:38)
[2021-08-21] MEDS ORDERED: DEXTROSE 5%-WATER 100 ML IVPB ONE (10:00)
[2021-08-21] MEDS: CEFTRIAXONE 2 GM in DEXTROSE 5%-WATER 100 ML IVPB SCH (10:38)
[2021-08-21] MEDS: predniSONE 5 MG TABLET (UD) PO SCH (10:39)
[2021-08-21] MEDS: TACROLIMUS ANHYDROUS 1 MG, TACROLIMUS ANHYDROUS 0.5 MG PO SCH ×2 (10:39→22:38)
[2021-08-21] MEDS: FAMOTIDINE 20 MG TABLET PO SCH (10:40)
[2021-08-21] MEDS: TAMSULOSIN HCL 0.4 MG CAP PO SCH (10:40)
[2021-08-21] MEDS: amLODIPine BESYLATE 10 MG TABLET (FP) PO SCH (10:40)
[2021-08-21] MEDS: GABAPENTIN 400 MG CAPSULE PO SCH ×2 (10:41→22:38)
[2021-08-21] MEDS: MAGNESIUM OXIDE 400 MG TABLET (FP) PO SCH (10:41)
[2021-08-21] MEDS: BUDESONIDE/FORMETEROL FUMARATE 80/4.5 mcg INHALER IH SCH ×2 (10:41→22:39)
[2021-08-21 10:44] LABS: BASO % 0.3 % (0-2.0); EOS % 1.5 % (0-4.5); HEMATOCRIT 22.9 % (35.4-49); HEMOGLOBIN 7.9 GM/dL (11.7-16.9); LYMPH % 15.9 % (8-40); MCH 31.1 pg (25.7-33.7); MCHC 34.4 g/dl (32.0-35.9); MEAN CELL VOLUME 90.6 fl (80-96); MEAN PLT VOLUME 8.7 fl (7.5-11.1); MONO % 10.4 % (3.8-10.2); NEUT % 71.9 % (42.8-82.8); PLATELET COUNT 82 10^3/uL (134-434); RBC 2.53 M/mm3 (4.00-5.60); RDW 14.1 % (11.9-15.9); WHITE BLOOD COUNT 3.5 K/mm3 (4.0-10.0)
[2021-08-21 11:06] LABS: ALBUMIN 2.6 g/dl (3.4-5.0); BLOOD UREA NITROGEN 32.5 mg/dL (7-18)
[2021-08-21 11:07] LABS: CALCIUM 8.7 mg/dL (8.5-10.1)
[2021-08-21 11:09] LABS: CREATININE 1.8 mg/dL (0.55-1.3)
[2021-08-21 11:11] LABS: BILIRUBIN,TOTAL 0.5 mg/dL (0.2-1); TOT PROT 6.2 g/dl (6.4-8.2)
[2021-08-21] MEDS ORDERED: SODIUM CHLORIDE 0.45% 1,000 ML IV SCH (11:45)
[2021-08-21] MEDS: ATORVASTATIN CA 40 MG TABLET (FP) PO SCH (22:38)
[2021-08-21] MEDS: MELATONIN 5 MG TABLETS PO PRN (22:38)
[2021-08-21] MEDS: LACTOBACILLUS ACIDOPHILUS 1 TABLET PO SCH (22:50)
[2021-08-22] MEDS: HEPARIN NA (PORCINE) 5,000 UNITS/ML 1ML VIAL SQ SCH ×3 (05:38→22:27)
[2021-08-22] MEDS: INSULIN SLIDING SCALE (NOVOLOG) 1 VIAL SQ SCH ×4 (06:40→22:27)
[2021-08-22] MEDS ORDERED: DEXTROSE 5%-WATER 100 ML IVPB ONE (09:04)
[2021-08-22] MEDS: CEFTRIAXONE 2 GM in DEXTROSE 5%-WATER 100 ML IVPB SCH ×2 (09:10→14:36)
[2021-08-22] MEDS: GABAPENTIN 400 MG CAPSULE PO SCH ×2 (09:11→22:27)
[2021-08-22] MEDS: amLODIPine BESYLATE 10 MG TABLET (FP) PO SCH (09:11)
[2021-08-22] MEDS: FAMOTIDINE 20 MG TABLET PO SCH (09:11)
[2021-08-22] MEDS: predniSONE 5 MG TABLET (UD) PO SCH (09:11)
[2021-08-22] MEDS: LACTOBACILLUS ACIDOPHILUS 1 TABLET PO SCH ×2 (09:11→22:27)
[2021-08-22] MEDS: TAMSULOSIN HCL 0.4 MG CAP PO SCH (09:11)
[2021-08-22] MEDS: MAGNESIUM OXIDE 400 MG TABLET (FP) PO SCH (09:11)
[2021-08-22] MEDS: TACROLIMUS ANHYDROUS 1 MG, TACROLIMUS ANHYDROUS 0.5 MG PO SCH ×2 (09:12→22:28)
[2021-08-22] MEDS: BUDESONIDE/FORMETEROL FUMARATE 80/4.5 mcg INHALER IH SCH ×2 (09:12→22:28)
[2021-08-22 11:19] LABS: BASO % 0.4 % (0-2.0); EOS % 2.3 % (0-4.5); HEMATOCRIT 25.8 % (35.4-49); HEMOGLOBIN 9.1 GM/dL (11.7-16.9); LYMPH % 19.5 % (8-40); MCH 31.4 pg (25.7-33.7); MCHC 35.2 g/dl (32.0-35.9); MEAN CELL VOLUME 89.2 fl (80-96); MONO % 8.7 % (3.8-10.2); NEUT % 69.1 % (42.8-82.8); PLATELET COUNT 95 10^3/uL (134-434); RDW 14.1 % (11.9-15.9); WHITE BLOOD COUNT 3.8 K/mm3 (4.0-10.0)
[2021-08-22 12:09] LABS: BLOOD UREA NITROGEN 30.5 mg/dL (7-18); CALCIUM 9.1 mg/dL (8.5-10.1)
[2021-08-22 12:10] LABS: ALBUMIN 2.6 g/dl (3.4-5.0)
[2021-08-22 12:12] LABS: CREATININE 1.6 mg/dL (0.55-1.3)
[2021-08-22 12:13] LABS: BILIRUBIN,TOTAL 0.7 mg/dL (0.2-1); TOT PROT 6.6 g/dl (6.4-8.2)
[2021-08-22] MEDS: ATORVASTATIN CA 40 MG TABLET (FP) PO SCH (22:27)
[2021-08-22] MEDS: oxyCODONE HCL 5 MG TABLET PO PRN (22:39)
[2021-08-22] MEDS: MELATONIN 5 MG TABLETS PO PRN (22:39)
[2021-08-23] MEDS: INSULIN SLIDING SCALE (NOVOLOG) 1 VIAL SQ SCH ×4 (06:25→21:22)
[2021-08-23] MEDS: HEPARIN NA (PORCINE) 5,000 UNITS/ML 1ML VIAL SQ SCH ×3 (06:25→21:22)
[2021-08-23] MEDS ORDERED: DEXTROSE 5%-WATER 100 ML IVPB ONE (09:01)
[2021-08-23] MEDS: CEFTRIAXONE 2 GM in DEXTROSE 5%-WATER 100 ML IVPB SCH (09:15)
[2021-08-23] MEDS: LACTOBACILLUS ACIDOPHILUS 1 TABLET PO SCH ×2 (09:16→21:21)
[2021-08-23] MEDS: amLODIPine BESYLATE 10 MG TABLET (FP) PO SCH (09:16)
[2021-08-23] MEDS: FAMOTIDINE 20 MG TABLET PO SCH (09:16)
[2021-08-23] MEDS: TAMSULOSIN HCL 0.4 MG CAP PO SCH (09:16)
[2021-08-23] MEDS: MAGNESIUM OXIDE 400 MG TABLET (FP) PO SCH (09:16)
[2021-08-23] MEDS: GABAPENTIN 400 MG CAPSULE PO SCH ×2 (09:16→21:21)
[2021-08-23] MEDS: TACROLIMUS ANHYDROUS 1 MG, TACROLIMUS ANHYDROUS 0.5 MG PO SCH ×2 (09:18→21:22)
[2021-08-23] MEDS: BUDESONIDE/FORMETEROL FUMARATE 80/4.5 mcg INHALER IH SCH ×3 (09:18→21:23)
[2021-08-23] MEDS: predniSONE 5 MG TABLET (UD) PO SCH (09:18)
[2021-08-23] MEDS ORDERED: ACETAMINOPHEN 1000 MG/100 ML BAG IVPB PRN (09:48)
[2021-08-23 11:02] LABS: BASO % 0.3 % (0-2.0); EOS % 2.2 % (0-4.5); HEMATOCRIT 23.2 % (35.4-49); HEMOGLOBIN 8.1 GM/dL (11.7-16.9); LYMPH % 22.9 % (8-40); MCH 31.5 pg (25.7-33.7); MCHC 35.1 g/dl (32.0-35.9); MEAN CELL VOLUME 89.8 fl (80-96); MEAN PLT VOLUME 9.6 fl (7.5-11.1); NEUT % 63.6 % (42.8-82.8); PLATELET COUNT 94 10^3/uL (134-434); RBC 2.58 M/mm3 (4.00-5.60); RDW 14.1 % (11.9-15.9)
[2021-08-23 11:57] LABS: ERYTHROCYTE SEDIMENTATION RATE 63 mm/hr (0-20)
[2021-08-23 13:05] LABS: ALBUMIN 2.5 g/dl (3.4-5.0); BILIRUBIN,TOTAL 0.5 mg/dL (0.2-1); CALCIUM 8.5 mg/dL (8.5-10.1); CREATININE 1.8 mg/dL (0.55-1.3); TOT PROT 6.5 g/dl (6.4-8.2)
[2021-08-23] MEDS: MELATONIN 5 MG TABLETS PO PRN (21:21)
[2021-08-23] MEDS: ATORVASTATIN CA 40 MG TABLET (FP) PO SCH (21:21)
[2021-08-24] MEDS: INSULIN SLIDING SCALE (NOVOLOG) 1 VIAL SQ SCH ×4 (06:02→21:33)
[2021-08-24] MEDS: HEPARIN NA (PORCINE) 5,000 UNITS/ML 1ML VIAL SQ SCH ×3 (06:02→21:31)
[2021-08-24] MEDS: TAMSULOSIN HCL 0.4 MG CAP PO SCH (08:54)
[2021-08-24] MEDS ORDERED: DEXTROSE 5%-WATER 100 ML IVPB ONE (09:36)
[2021-08-24] MEDS: LACTOBACILLUS ACIDOPHILUS 1 TABLET PO SCH ×2 (09:41→21:32)
[2021-08-24] MEDS: GABAPENTIN 400 MG CAPSULE PO SCH ×2 (09:42→21:32)
[2021-08-24] MEDS: predniSONE 5 MG TABLET (UD) PO SCH (09:42)
[2021-08-24] MEDS: MAGNESIUM OXIDE 400 MG TABLET (FP) PO SCH (09:42)
[2021-08-24] MEDS: FAMOTIDINE 20 MG TABLET PO SCH (09:43)
[2021-08-24] MEDS: TACROLIMUS ANHYDROUS 1 MG, TACROLIMUS ANHYDROUS 0.5 MG PO SCH ×2 (09:43→21:33)
[2021-08-24] MEDS: amLODIPine BESYLATE 10 MG TABLET (FP) PO SCH (09:43)
[2021-08-24] MEDS: CEFTRIAXONE 2 GM in DEXTROSE 5%-WATER 100 ML IVPB SCH (09:44)
[2021-08-24] MEDS: BUDESONIDE/FORMETEROL FUMARATE 80/4.5 mcg INHALER IH SCH ×2 (09:53→21:33)
[2021-08-24] MEDS: ATORVASTATIN CA 40 MG TABLET (FP) PO SCH (21:32)
[2021-08-24] MEDS: MELATONIN 5 MG TABLETS PO PRN (21:32)
[2021-08-25] MEDS: HEPARIN NA (PORCINE) 5,000 UNITS/ML 1ML VIAL SQ SCH ×3 (06:33→21:52)
[2021-08-25] MEDS: INSULIN SLIDING SCALE (NOVOLOG) 1 VIAL SQ SCH ×4 (06:33→22:04)
[2021-08-25] MEDS ORDERED: DEXTROSE 5%-WATER 100 ML IVPB ONE (10:13)
[2021-08-25] MEDS: GABAPENTIN 400 MG CAPSULE PO SCH ×2 (10:25→21:52)
[2021-08-25] MEDS: LACTOBACILLUS ACIDOPHILUS 1 TABLET PO SCH ×2 (10:25→21:51)
[2021-08-25] MEDS: MAGNESIUM OXIDE 400 MG TABLET (FP) PO SCH (10:25)
[2021-08-25] MEDS: FAMOTIDINE 20 MG TABLET PO SCH (10:25)
[2021-08-25] MEDS: TAMSULOSIN HCL 0.4 MG CAP PO SCH (10:25)
[2021-08-25] MEDS: BUDESONIDE/FORMETEROL FUMARATE 80/4.5 mcg INHALER IH SCH ×2 (10:26→21:53)
[2021-08-25] MEDS: amLODIPine BESYLATE 10 MG TABLET (FP) PO SCH (10:26)
[2021-08-25] MEDS: CEFTRIAXONE 2 GM in DEXTROSE 5%-WATER 100 ML IVPB SCH (10:26)
[2021-08-25] MEDS: predniSONE 5 MG TABLET (UD) PO SCH (10:29)
[2021-08-25] MEDS: TACROLIMUS ANHYDROUS 1 MG, TACROLIMUS ANHYDROUS 0.5 MG PO SCH ×2 (10:30→21:53)
[2021-08-25 12:30] LABS: BASO % 0.7 % (0-2.0); EOS % 1.3 % (0-4.5); HEMATOCRIT 24.2 % (35.4-49); HEMOGLOBIN 8.3 GM/dL (11.7-16.9); LYMPH % 20.6 % (8-40); MCH 31.1 pg (25.7-33.7); MCHC 34.4 g/dl (32.0-35.9); MEAN CELL VOLUME 90.4 fl (80-96); MEAN PLT VOLUME 10.4 fl (7.5-11.1); MONO % 12.4 % (3.8-10.2); PLATELET COUNT 102 10^3/uL (134-434); RBC 2.67 M/mm3 (4.00-5.60); RDW 14.5 % (11.9-15.9); WHITE BLOOD COUNT 2.9 K/mm3 (4.0-10.0)
[2021-08-25 12:52] LABS: CALCIUM 8.8 mg/dL (8.5-10.1)
[2021-08-25 12:53] LABS: ALBUMIN 2.6 g/dl (3.4-5.0); BLOOD UREA NITROGEN 25.8 mg/dL (7-18); CREATININE 1.7 mg/dL (0.55-1.3); MAGNESIUM 1.4 mg/dL (1.8-2.4)
[2021-08-25 12:55] LABS: BILIRUBIN,TOTAL 0.6 mg/dL (0.2-1); TOT PROT 6.4 g/dl (6.4-8.2)
[2021-08-25] MEDS ORDERED: MAGNESIUM 2GM/50ML STERILE WATER IVPB IVPB ONE (16:23)
[2021-08-25] MEDS: ATORVASTATIN CA 40 MG TABLET (FP) PO SCH (21:52)
[2021-08-25] MEDS: MELATONIN 5 MG TABLETS PO PRN (21:52)
[2021-08-26] MEDS: HEPARIN NA (PORCINE) 5,000 UNITS/ML 1ML VIAL SQ SCH ×3 (05:59→21:21)
[2021-08-26] MEDS: INSULIN SLIDING SCALE (NOVOLOG) 1 VIAL SQ SCH ×4 (06:00→21:21)
[2021-08-26] MEDS ORDERED: DEXTROSE 5%-WATER 100 ML IVPB ONE (09:27)
[2021-08-26 09:32] LABS: BASO % 0.5 % (0-2.0); EOS % 1.8 % (0-4.5); HEMATOCRIT 27.2 % (35.4-49); HEMOGLOBIN 9.2 GM/dL (11.7-16.9); LYMPH % 21.9 % (8-40); MCH 30.9 pg (25.7-33.7); MCHC 33.8 g/dl (32.0-35.9); MEAN CELL VOLUME 91.5 fl (80-96); MEAN PLT VOLUME 9.9 fl (7.5-11.1); MONO % 13.5 % (3.8-10.2); NEUT % 62.3 % (42.8-82.8); PLATELET COUNT 105 10^3/uL (134-434); RBC 2.97 M/mm3 (4.00-5.60); RDW 14.3 % (11.9-15.9); WHITE BLOOD COUNT 2.6 K/mm3 (4.0-10.0)
[2021-08-26 09:59] LABS: CALCIUM 9.1 mg/dL (8.5-10.1)
[2021-08-26 10:00] LABS: ALBUMIN 2.7 g/dl (3.4-5.0); MAGNESIUM 1.7 mg/dL (1.8-2.4)
[2021-08-26 10:03] LABS: CREATININE 1.8 mg/dL (0.55-1.3); PHOSPHOROUS 3.8 mg/dL (2.5-4.9)
[2021-08-26 10:04] LABS: BILIRUBIN,TOTAL 0.8 mg/dL (0.2-1); TOT PROT 6.7 g/dl (6.4-8.2)
[2021-08-26] MEDS: BUDESONIDE/FORMETEROL FUMARATE 80/4.5 mcg INHALER IH SCH ×2 (10:18→22:13)
[2021-08-26] MEDS: TACROLIMUS ANHYDROUS 1 MG, TACROLIMUS ANHYDROUS 0.5 MG PO SCH ×2 (10:31→21:44)
[2021-08-26] MEDS: GABAPENTIN 400 MG CAPSULE PO SCH ×2 (10:32→21:21)
[2021-08-26] MEDS: MAGNESIUM OXIDE 400 MG TABLET (FP) PO SCH (10:32)
[2021-08-26] MEDS: FAMOTIDINE 20 MG TABLET PO SCH (10:32)
[2021-08-26] MEDS: CEFTRIAXONE 2 GM in DEXTROSE 5%-WATER 100 ML IVPB SCH (10:32)
[2021-08-26] MEDS: TAMSULOSIN HCL 0.4 MG CAP PO SCH (10:32)
[2021-08-26] MEDS: LACTOBACILLUS ACIDOPHILUS 1 TABLET PO SCH ×2 (10:32→21:21)
[2021-08-26] MEDS: amLODIPine BESYLATE 10 MG TABLET (FP) PO SCH (10:33)
[2021-08-26] MEDS: predniSONE 5 MG TABLET (UD) PO SCH (10:33)
[2021-08-26] MEDS ORDERED: MAGNESIUM SULF 50% (8.12 MEQ/2 ML-1 GM VIAL) IVPB ONE (12:50)
[2021-08-26] MEDS: ATORVASTATIN CA 40 MG TABLET (FP) PO SCH (21:21)
[2021-08-27] MEDS: HEPARIN NA (PORCINE) 5,000 UNITS/ML 1ML VIAL SQ SCH (07:12)
[2021-08-27] MEDS: INSULIN SLIDING SCALE (NOVOLOG) 1 VIAL SQ SCH ×2 (07:12→11:31)
[2021-08-27] MEDS: TAMSULOSIN HCL 0.4 MG CAP PO SCH (08:19)
[2021-08-27] MEDS ORDERED: DEXTROSE 5%-WATER 100 ML IVPB ONE (08:58)
[2021-08-27] MEDS: GABAPENTIN 400 MG CAPSULE PO SCH (09:01)
[2021-08-27] MEDS: FAMOTIDINE 20 MG TABLET PO SCH (09:01)
[2021-08-27] MEDS: amLODIPine BESYLATE 10 MG TABLET (FP) PO SCH (09:01)
[2021-08-27] MEDS: CEFTRIAXONE 2 GM in DEXTROSE 5%-WATER 100 ML IVPB SCH (09:01)
[2021-08-27] MEDS: predniSONE 5 MG TABLET (UD) PO SCH (09:02)
[2021-08-27] MEDS: MAGNESIUM OXIDE 400 MG TABLET (FP) PO SCH (09:02)
[2021-08-27] MEDS: LACTOBACILLUS ACIDOPHILUS 1 TABLET PO SCH (09:02)
[2021-08-27] MEDS: TACROLIMUS ANHYDROUS 1 MG, TACROLIMUS ANHYDROUS 0.5 MG PO SCH (09:03)
[2021-08-27] MEDS: BUDESONIDE/FORMETEROL FUMARATE 80/4.5 mcg INHALER IH SCH (09:04)
[2021-08-27 10:32] VITALS: BP 142/111; PULSE 62; TEMP 98.1
[2021-08-27 12:04] LABS: BASO % 0.5 % (0-2.0); EOS % 1.9 % (0-4.5); HEMATOCRIT 28.2 % (35.4-49); HEMOGLOBIN 9.7 GM/dL (11.7-16.9); LYMPH % 21.8 % (8-40); MCH 31.2 pg (25.7-33.7); MCHC 34.3 g/dl (32.0-35.9); MEAN CELL VOLUME 91.1 fl (80-96); MEAN PLT VOLUME 10.6 fl (7.5-11.1); MONO % 15.1 % (3.8-10.2); NEUT % 60.7 % (42.8-82.8); PLATELET COUNT 125 10^3/uL (134-434); RBC 3.09 M/mm3 (4.00-5.60); RDW 14.3 % (11.9-15.9); WHITE BLOOD COUNT 3.3 K/mm3 (4.0-10.0)
[2021-08-27 12:24] LABS: BLOOD UREA NITROGEN 28.1 mg/dL (7-18); CALCIUM 9.1 mg/dL (8.5-10.1); MAGNESIUM 1.9 mg/dL (1.8-2.4)
[2021-08-27 12:27] LABS: CREATININE 1.9 mg/dL (0.55-1.3); PHOSPHOROUS 3.9 mg/dL (2.5-4.9)
[2021-08-27 12:29] LABS: BILIRUBIN,TOTAL 0.6 mg/dL (0.2-1); TOT PROT 7.3 g/dl (6.4-8.2)
== END 2021-08-27 14:04 | disposition home or self-care (01) | DRG 314 ==
LOC: JER 15:14 → JERBED 23:38 → J8W 08-10 05:37 → J5S 08-12 06:50
PROVIDERS: ADMIT Internal Medicine; ATTEND Internal Medicine
PROC: XW033E5 Introduction of Remdesivir Anti-infective into Peripheral Vein, Percutaneous Approach, New Technology Group 5 (ICD-10-PCS; 2021-08-11)
PROC: XW033H6 Introduction of Other New Technology Monoclonal Antibody into Peripheral Vein, Percutaneous Approach, New Technology Group 6 (ICD-10-PCS; 2021-08-11)
PROC: 0QBP0ZZ Excision of Left Metatarsal, Open Approach (ICD-10-PCS; principal; 2021-08-12)
PROC: 0JBR0ZZ Excision of Left Foot Subcutaneous Tissue and Fascia, Open Approach (ICD-10-PCS; 2021-08-12)
PROC: 0QBP0ZZ Excision of Left Metatarsal, Open Approach (ICD-10-PCS; 2021-08-19)
PROC: 3E0V329 Introduction of Other Anti-infective into Bones, Percutaneous Approach (ICD-10-PCS; 2021-08-19)
PROC: 02HV33Z Insertion of Infusion Device into Superior Vena Cava, Percutaneous Approach (ICD-10-PCS; 2021-08-27)
PROC: B518ZZA Fluoroscopy of Superior Vena Cava, Guidance (ICD-10-PCS; 2021-08-27)
DX: E11.69 Type 2 diabetes mellitus with other specified complication (principal); J45.909 Unspecified asthma, uncomplicated; M54.9 Dorsalgia, unspecified; N17.9 Acute kidney failure, unspecified; D64.9 Anemia, unspecified; I12.9 Hypertensive chronic kidney disease with stage 1 through stage 4 chronic kidney disease, or unspecified chronic kidney disease; N18.32 Chronic kidney disease, stage 3b; E11.22 Type 2 diabetes mellitus with diabetic chronic kidney disease; E87.1 Hypo-osmolality and hyponatremia; G89.29 Other chronic pain; M86.172 Other acute osteomyelitis, left ankle and foot; U07.1 COVID-19; E11.621 Type 2 diabetes mellitus with foot ulcer; L97.528 Non-pressure chronic ulcer of other part of left foot with other specified severity; L03.116 Cellulitis of left lower limb; K70.10 Alcoholic hepatitis without ascites; E11.65 Type 2 diabetes mellitus with hyperglycemia; F14.10 Cocaine abuse, uncomplicated; K59.00 Constipation, unspecified; M54.50 Low back pain, unspecified; B95.8 Unspecified staphylococcus as the cause of diseases classified elsewhere; B96.1 Klebsiella pneumoniae [K. pneumoniae] as the cause of diseases classified elsewhere; Z94.4 Liver transplant status; E83.42 Hypomagnesemia; Z91.19 Patient's noncompliance with other medical treatment and regimen
CPT/HCPCS: 36415; 36558; 71045-TC-FY; 71046-TC-FY; 73630-TC-LT; 73718-TC-LT; 76705-TC; 76775-TC; 80048; 80053; 80061; 80197; 81003; 82248; 82570; 82728; 82962; 82977; 83036; 83540; 83550; 83605; 83735; 84100; 84156; 84300; 84443; 84484; 85025; 85027; 85045; 85610; 85651; 85730; 86140; 86780; 86850; 86900; 86901; 87040; 87070; 87075; 87186; 87205; 87389; 87804; 87899; 90686; 93005; 93010; 93971-TC; 94010; 94760; 99285-25; C9399; C9803; G0008; J0131; J1644; J7517; Q0247; U0003; U0005

== ENCOUNTER 2021-08-29 11:54 | Day surgery (SDC) | payer OTHER ==
[2021-08-29] MEDS ORDERED: CEFTRIAXONE 2 GM in DEXTROSE 5%-WATER 100 ML IVPB ONE (12:30)
[2021-08-29 12:40] VITALS: TEMP 97.8
[2021-08-29 13:34] VITALS: BP 143/79; PULSE 93
== END 2021-08-29 14:45 | disposition home or self-care (01) ==
LOC: FINFUSION 11:54 → FM/S 11:56 → FINFUSION 14:45
PROVIDERS: ATTEND Internal Medicine Infectious Disease
DX: L03.116 Cellulitis of left lower limb (principal); L02.612 Cutaneous abscess of left foot
CPT/HCPCS: 96365; 96366

== ENCOUNTER 2021-08-30 11:55 | Day surgery (SDC) | payer OTHER ==
[2021-08-30] MEDS ORDERED: cefTRIAXone 2 GM/100 ML BAG (PRE-DOCKED) IVPB SCH (12:15)
[2021-08-30 12:46] VITALS: BP 138/75; PULSE 88; TEMP 98
== END 2021-08-30 13:14 | disposition home or self-care (01) ==
LOC: FINFUSION 11:55 → FM/S 11:56 → FINFUSION 13:14
PROVIDERS: ATTEND Internal Medicine Infectious Disease
DX: L03.116 Cellulitis of left lower limb (principal); L02.612 Cutaneous abscess of left foot
CPT/HCPCS: 96374

== ENCOUNTER 2021-09-02 11:04 | Day surgery (SDC) | payer OTHER ==
[2021-09-02] MEDS ORDERED: SODIUM CHLORIDE 100 ML IVPB ONE (11:26)
[2021-09-02] MEDS ORDERED: CEFTRIAXONE 2 GM in DEXTROSE 5%-WATER - 100 ML IVPB ONE (11:45)
[2021-09-02] MEDS ORDERED: CEFTRIAXONE 2 GM in SODIUM CHLORIDE 100 ML IVPB ONE (11:45)
[2021-09-02 12:28] VITALS: BP 129/59; PULSE 74; TEMP 98.1
== END 2021-09-02 12:00 | disposition home or self-care (01) ==
LOC: FINFUSION 11:04 → FM/S 11:06 → FINFUSION 12:00
PROVIDERS: ATTEND Internal Medicine Infectious Disease
DX: L03.116 Cellulitis of left lower limb (principal); L02.612 Cutaneous abscess of left foot
CPT/HCPCS: 96365

== ENCOUNTER 2021-09-02 13:51 | Emergency (ER) | payer OTHER ==
[2021-09-02 14:17] VITALS: BP 118/79; PULSE 76; TEMP 98.3; BMI 32.3
== END 2021-09-02 15:27 | disposition home or self-care (01) ==
LOC: JERFT 13:51
DX: S91.312A Laceration without foreign body, left foot, initial encounter (principal); Y99.9 Unspecified external cause status; Z48.02 Encounter for removal of sutures
CPT/HCPCS: 99281-25

== ENCOUNTER 2021-09-03 11:15 | Day surgery (SDC) | payer OTHER ==
[2021-09-03] MEDS ORDERED: CEFTRIAXONE 2 GM in SODIUM CHLORIDE 100 ML IVPB ONE (11:45)
[2021-09-03] MEDS ORDERED: SODIUM CHLORIDE 100 ML IVPB ONE (12:15)
[2021-09-03 13:12] VITALS: BP 128/69; PULSE 72; TEMP 98.3
[2021-09-03 16:31] LABS: HEMATOCRIT 31.4 % (35.4-49); HEMOGLOBIN 10.8 GM/dL (11.7-16.9); MCH 31.4 pg (25.7-33.7); MCHC 34.5 g/dl (32.0-35.9); MEAN CELL VOLUME 90.9 fl (80-96); MEAN PLT VOLUME 9.7 fl (7.5-11.1); PLATELET COUNT 143 10^3/uL (134-434); RBC 3.46 M/mm3 (4.00-5.60); RDW 14.5 % (11.9-15.9); WHITE BLOOD COUNT 2.6 K/mm3 (4.0-10.0)
[2021-09-03 17:30] LABS: ERYTHROCYTE SEDIMENTATION RATE 45 mm/hr (0-20)
== END 2021-09-03 13:20 | disposition home or self-care (01) ==
LOC: FINFUSION 11:15 → FM/S 11:17 → FINFUSION 13:20
PROVIDERS: ATTEND Internal Medicine Infectious Disease
DX: L03.116 Cellulitis of left lower limb (principal); L02.612 Cutaneous abscess of left foot
CPT/HCPCS: 36415; 80048; 85027; 85651; 86140; 96365

== ENCOUNTER 2021-09-04 14:41 | Day surgery (SDC) | payer OTHER ==
[2021-09-04] MEDS ORDERED: SODIUM CHLORIDE 100 ML IVPB ONE (14:50)
[2021-09-04 14:57] VITALS: PULSE 60; TEMP 97.7
[2021-09-04] MEDS ORDERED: CEFTRIAXONE 2 GM in SODIUM CHLORIDE 100 ML IVPB ONE (15:00)
[2021-09-04 16:08] VITALS: BP 121/80
== END 2021-09-04 16:15 | disposition home or self-care (01) ==
LOC: FINFUSION 14:41 → FM/S 14:41 → FINFUSION 16:15
PROVIDERS: ATTEND Internal Medicine Infectious Disease
DX: L03.116 Cellulitis of left lower limb (principal); L02.612 Cutaneous abscess of left foot
CPT/HCPCS: 96365

== ENCOUNTER 2021-09-07 11:19 | Day surgery (SDC) | payer OTHER ==
[2021-09-07] MEDS ORDERED: DEXTROSE 5%-WATER 100 ML IVPB ONE (11:43)
[2021-09-07] MEDS ORDERED: CEFTRIAXONE 2 GM in DEXTROSE 5%-WATER 100 ML IVPB ONE (11:45)
[2021-09-07 14:23] VITALS: BP 145/82; PULSE 76; TEMP 98.8
== END 2021-09-07 12:00 | disposition home or self-care (01) ==
LOC: FINFUSION 11:19 → FM/S 11:20 → FINFUSION 12:00
PROVIDERS: ATTEND Internal Medicine Infectious Disease
DX: L03.116 Cellulitis of left lower limb (principal); L02.612 Cutaneous abscess of left foot
CPT/HCPCS: 96365

== ENCOUNTER 2021-09-08 11:37 | Day surgery (SDC) | payer OTHER ==
[2021-09-08] MEDS ORDERED: SODIUM CHLORIDE 100 ML IVPB ONE (12:03)
[2021-09-08] MEDS ORDERED: CEFTRIAXONE 2 GM in SODIUM CHLORIDE 100 ML IVPB ONE (12:15)
[2021-09-08 12:49] VITALS: BP 136/66; PULSE 68; TEMP 97.8
== END 2021-09-08 13:00 | disposition home or self-care (01) ==
LOC: FINFUSION 11:37 → FM/S 11:46 → FINFUSION 13:00
PROVIDERS: ATTEND Internal Medicine Infectious Disease
DX: L03.116 Cellulitis of left lower limb (principal); L02.612 Cutaneous abscess of left foot
CPT/HCPCS: 96365

== ENCOUNTER 2021-09-13 18:28 | Inpatient (IN) | payer OTHER ==
[2021-09-13] MEDS ORDERED: PIPERACILLIN/TAZOB 4.5 GM 4.5 GM in DEXTROSE 5%-WATER 100 ML IVPB ONE (19:58)
[2021-09-13] MEDS ORDERED: VANCOMYCIN 1,000 MG in DEXTROSE 5%-WATER - 250 ML IVPB ONE (19:58)
[2021-09-13] MEDS ORDERED: PIPERACILLIN/TAZOB 4.5 GM 4.5 GM/100 ML BAG IVPB ONE (20:06)
[2021-09-13 20:45] LABS: BASO % 0.8 % (0-2.0); EOS % 5.8 % (0-4.5); HEMATOCRIT 27.5 % (35.4-49); HEMOGLOBIN 9.7 GM/dL (11.7-16.9); LYMPH % 18.3 % (8-40); MCH 31.3 pg (25.7-33.7); MCHC 35.2 g/dl (32.0-35.9); MEAN CELL VOLUME 88.9 fl (80-96); MEAN PLT VOLUME 7.8 fl (7.5-11.1); MONO % 14.5 % (3.8-10.2); NEUT % 60.6 % (42.8-82.8); PLATELET COUNT 152 10^3/uL (134-434); WHITE BLOOD COUNT 2.9 K/mm3 (4.0-10.0)
[2021-09-13 20:54] LABS: INR 1.16 (0.83-1.09); PROTHROMBIN TIME (PATIENT) 13.4 SEC (9.7-13.0)
[2021-09-13 20:57] LABS: ACTIVATED PTT 32.1 SECONDS (25.2-36.5)
[2021-09-13 21:03] LABS: CALCIUM 9.1 mg/dL (8.5-10.1)
[2021-09-13 21:04] LABS: ALBUMIN 3.2 g/dl (3.4-5.0); BLOOD UREA NITROGEN 49.1 mg/dL (7-18)
[2021-09-13 21:08] LABS: BILIRUBIN,TOTAL 0.8 mg/dL (0.2-1)
[2021-09-13 21:10] LABS: TOT PROT 7.4 g/dl (6.4-8.2)
[2021-09-13] MEDS ORDERED: VANCOMYCIN 1 GRAM (PRE-DOCKED) 1,000 MG/250 ML BAG IVPB ONE (21:14)
[2021-09-13] MEDS ORDERED: SODIUM CHLORIDE 0.9% 500 ML INFUS.BAG IV ONE (22:16)
[2021-09-14] MEDS ORDERED: DOCUSATE SODIUM 100 MG CAPSULE (FP) PO PRN (00:14)
[2021-09-14] MEDS ORDERED: SENNOSIDES 8.6MG TABLET (FP) PO PRN (00:14)
[2021-09-14] MEDS ORDERED: ALBUTEROL SO4 HFA INHALER IH PRN (01:45)
[2021-09-14 05:17] VITALS: BMI 28.3
[2021-09-14] MEDS: HEPARIN NA (PORCINE) 5,000 UNITS/ML 1ML VIAL SQ SCH ×3 (05:57→21:13)
[2021-09-14] MEDS: INSULIN SLIDING SCALE (NOVOLOG) 1 VIAL SQ SCH ×4 (06:03→21:14)
[2021-09-14 09:21] LABS: BASO % 0.8 % (0-2.0); EOS % 6.2 % (0-4.5); HEMOGLOBIN 8.9 GM/dL (11.7-16.9); LYMPH % 20.5 % (8-40); MCH 31.7 pg (25.7-33.7); MCHC 35.8 g/dl (32.0-35.9); MEAN CELL VOLUME 88.6 fl (80-96); MEAN PLT VOLUME 8.1 fl (7.5-11.1); MONO % 16.7 % (3.8-10.2); NEUT % 55.8 % (42.8-82.8); PLATELET COUNT 134 10^3/uL (134-434); RBC 2.82 M/mm3 (4.00-5.60); RDW 13.7 % (11.9-15.9); WHITE BLOOD COUNT 2.2 K/mm3 (4.0-10.0)
[2021-09-14 09:38] LABS: ALBUMIN 2.9 g/dl (3.4-5.0); BLOOD UREA NITROGEN 43.4 mg/dL (7-18); CALCIUM 8.8 mg/dL (8.5-10.1); MAGNESIUM 1.6 mg/dL (1.8-2.4)
[2021-09-14 09:40] LABS: CREATININE 1.7 mg/dL (0.55-1.3); PHOSPHOROUS 3.5 mg/dL (2.5-4.9)
[2021-09-14 09:43] LABS: TOT PROT 6.7 g/dl (6.4-8.2)
[2021-09-14 09:47] LABS: ACTIVATED PTT 34.4 SECONDS (25.2-36.5); INR 1.24 (0.83-1.09); PROTHROMBIN TIME (PATIENT) 14.3 SEC (9.7-13.0)
[2021-09-14] MEDS ORDERED: PATIENT'S OWN MEDICATION (NON-FORMULARY) (Omeprazole 20 MG Capsule.Dr) PO SCH (10:00)
[2021-09-14] MEDS ORDERED: DEXTROSE 5%-WATER 100 ML IVPB ONE (10:33)
[2021-09-14] MEDS: CEFTRIAXONE 2 GM in DEXTROSE 5%-WATER 100 ML IVPB SCH (10:47)
[2021-09-14] MEDS: predniSONE 5 MG TABLET (UD) PO SCH (10:47)
[2021-09-14] MEDS: PANTOPRAZOLE 40 MG TABLET PO SCH (10:47)
[2021-09-14] MEDS: TACROLIMUS ANHYDROUS 1 MG CAPSULE PO SCH ×2 (10:47→21:13)
[2021-09-14] MEDS: GABAPENTIN 400 MG CAPSULE PO SCH ×2 (10:47→21:13)
[2021-09-14] MEDS: BUDESONIDE/FORMETEROL FUMARATE 80/4.5 mcg INHALER IH SCH ×2 (10:48→21:14)
[2021-09-14] MEDS: amLODIPine BESYLATE 10 MG TABLET (FP) PO SCH (10:48)
[2021-09-14] MEDS: SODIUM CHLORIDE 0.45% 1,000 ML IV SCH (12:29)
[2021-09-14] MEDS: FOLIC ACID 1 MG TABLET (FP) PO SCH (18:08)
[2021-09-14] MEDS: THIAMINE HCL 100 MG TABLET (FP) PO SCH (18:08)
[2021-09-14] MEDS ORDERED: INSULIN (NOVOLOG) ASPART 100 UNITS/ML 10ML VIAL ONE (21:02)
[2021-09-14] MEDS: URSODIOL 300 MG CAPSULE PO SCH (21:13)
[2021-09-14] MEDS: INSULIN (LEVEMIR) 100 UNITS/ML UNITS SQ SCH (21:14)
[2021-09-15] MEDS: SODIUM CHLORIDE 0.45% 1,000 ML IV SCH ×2 (01:08→18:39)
[2021-09-15] MEDS: HEPARIN NA (PORCINE) 5,000 UNITS/ML 1ML VIAL SQ SCH ×3 (05:57→21:26)
[2021-09-15] MEDS: INSULIN SLIDING SCALE (NOVOLOG) 1 VIAL SQ SCH ×4 (06:01→21:32)
[2021-09-15] MEDS ORDERED: DEXTROSE 5%-WATER 100 ML IVPB ONE (10:52)
[2021-09-15 11:08] LABS: EOS % 5.6 % (0-4.5); HEMATOCRIT 27.9 % (35.4-49); HEMOGLOBIN 9.7 GM/dL (11.7-16.9); LYMPH % 23.1 % (8-40); MCH 31.2 pg (25.7-33.7); MCHC 34.6 g/dl (32.0-35.9); MEAN CELL VOLUME 90.3 fl (80-96); MEAN PLT VOLUME 9.2 fl (7.5-11.1); MONO % 10.7 % (3.8-10.2); NEUT % 59.6 % (42.8-82.8); PLATELET COUNT 155 10^3/uL (134-434); RBC 3.09 M/mm3 (4.00-5.60); RDW 13.9 % (11.9-15.9); WHITE BLOOD COUNT 2.1 K/mm3 (4.0-10.0)
[2021-09-15 11:11] LABS: CALCIUM 8.7 mg/dL (8.5-10.1)
[2021-09-15 11:12] LABS: ALBUMIN 2.9 g/dl (3.4-5.0); BLOOD UREA NITROGEN 36.3 mg/dL (7-18)
[2021-09-15] MEDS: PANTOPRAZOLE 40 MG TABLET PO SCH (11:13)
[2021-09-15] MEDS: GABAPENTIN 400 MG CAPSULE PO SCH ×2 (11:13→21:26)
[2021-09-15] MEDS: THIAMINE HCL 100 MG TABLET (FP) PO SCH (11:13)
[2021-09-15] MEDS: amLODIPine BESYLATE 10 MG TABLET (FP) PO SCH (11:13)
[2021-09-15] MEDS: predniSONE 5 MG TABLET (UD) PO SCH (11:14)
[2021-09-15] MEDS: TACROLIMUS ANHYDROUS 1 MG CAPSULE PO SCH ×2 (11:14→21:26)
[2021-09-15] MEDS: FOLIC ACID 1 MG TABLET (FP) PO SCH (11:14)
[2021-09-15] MEDS: CEFTRIAXONE 2 GM in DEXTROSE 5%-WATER 100 ML IVPB SCH (11:15)
[2021-09-15 11:16] LABS: CREATININE 1.8 mg/dL (0.55-1.3)
[2021-09-15] MEDS: URSODIOL 300 MG CAPSULE PO SCH ×2 (11:16→21:26)
[2021-09-15 11:18] LABS: BILIRUBIN,TOTAL 0.5 mg/dL (0.2-1)
[2021-09-15] MEDS: BUDESONIDE/FORMETEROL FUMARATE 80/4.5 mcg INHALER IH SCH ×2 (11:18→21:38)
[2021-09-15] MEDS: INSULIN (LEVEMIR) 100 UNITS/ML UNITS SQ SCH ×2 (11:18→21:26)
[2021-09-15 11:20] LABS: TOT PROT 7.1 g/dl (6.4-8.2)
[2021-09-15] MEDS ORDERED: INSULIN (NOVOLOG) ASPART 100 UNITS/ML 10ML VIAL ONE (12:19)
[2021-09-15 15:32] VITALS: BP 135/82; PULSE 59; TEMP 98.7
== END 2021-09-15 23:00 | disposition short-term general hospital (02) | DRG 380 ==
LOC: JER 18:28 → JERBED 23:57 → J8W 09-14 04:20
PROVIDERS: ADMIT Hospitalist; ATTEND Internal Medicine
DX: E11.621 Type 2 diabetes mellitus with foot ulcer (principal); L97.528 Non-pressure chronic ulcer of other part of left foot with other specified severity; Z94.4 Liver transplant status; I10 Essential (primary) hypertension; M54.50 Low back pain, unspecified; S91.302A Unspecified open wound, left foot, initial encounter; D72.819 Decreased white blood cell count, unspecified; K59.00 Constipation, unspecified; I12.9 Hypertensive chronic kidney disease with stage 1 through stage 4 chronic kidney disease, or unspecified chronic kidney disease; E11.22 Type 2 diabetes mellitus with diabetic chronic kidney disease; N18.9 Chronic kidney disease, unspecified; E11.65 Type 2 diabetes mellitus with hyperglycemia; F32.A Depression, unspecified; U07.1 COVID-19; Z91.14 Patient's other noncompliance with medication regimen; Z59.00 Homelessness unspecified; X58.XXXA Exposure to other specified factors, initial encounter
CPT/HCPCS: 36415; 71046-TC-FY; 72100-TC-FY; 73630-TC-LT; 76705-TC; 80053; 80197; 82962; 82977; 83735; 84080; 84100; 84484; 85025; 85610; 85730; 87040; 93005; 93010; 99285-25; C9803-CS; J1644; U0003; U0005

== ENCOUNTER → 2021-10-30 | Day surgery (SDC) | payer OTHER | END | disposition home or self-care (01) | LOC: JRADIR 13:22 | PROVIDERS: ATTEND Internal Medicine | PROC: 02PY33Z Removal of Infusion Device from Great Vessel, Percutaneous Approach (ICD-10-PCS; principal; 2021-10-30) | DX: Z45.2 Encounter for adjustment and management of vascular access device (principal) | CPT/HCPCS: 36589 ==